=== PATIENT | male | born 1955 | race Caucasian/White ===

== ENCOUNTER 2021-02-04 08:31 | Day surgery (SDC) | payer OTHER ==
[2021-02-04] MEDS ORDERED: Ringers Lactate 1,000 ML IV ONE (08:48)
[2021-02-04] MEDS ORDERED: propofoL 200 MG/20 ML VIAL IV ONE ×2 (09:53→10:28)
[2021-02-04] MEDS ORDERED: LIDOCAINE 1% MPF 5 ML VIAL ONE (09:53)
[2021-02-04] MEDS ORDERED: NA CIT/CITRIC AC 30 ML ORAL UDC ONE (10:14)
--- NOTE | 2021-02-04 10:48 | ENDO RPT ---
[address], [address] EGD PROCEDURE REPORT EXAM DATE: 02/04/2021 PATIENT NAME: Tavo Mayo MR#: [id number] BIRTHDATE: 1955 ATTENDING: Barry Wright DR STATUS: outpatient [employer] SUPERVISOR: Ana Ramirez RN and Debbie Multani RN INDICATIONS: The patient is a 65 yr old Male here for an EGD due to GERD and dyspepsia PROCEDURE PERFORMED: EGD with biopsy for H. pylori MEDICATIONS: Per Anesthesia. TOPICAL ANESTHETIC: none CONSENT: The patient understands the risks and benefits of the procedure and understands that these risks include, but are not limited to: sedation, allergic reaction, infection, perforation and/or bleeding. Alternative means of evaluation and treatment include, among others: physical exam, x-rays, and/or surgical intervention. The patient elects to proceed with this endoscopic procedure. DESCRIPTION OF PROCEDURE: During intra-op preparation period all mechanical medical equipment was checked for proper function. Hand hygiene and appropriate measures for infection prevention was taken. Procedure, possible complications, and alternatives including but not limited to the possibility of bleeding, perforation, tear, infection, sepsis, need for surgery, need for blood transfusion, and anesthesia related complications were explained to the patient. After the risks, benefits and alternatives of the procedure were thoroughly explained, Informed consent was verified, confirmed and timeout was successfully executed by the treatment team. The patient was placed in the left lateral position. The patient was anesthetized with topical anesthesia. Through the anesthetized oropharyngeal area, the scope was passed without any difficulty. The EG-[id number] ([id number]) endoscope was introduced through the mouth and advanced to the third portion of the duodenum. Retroflexed views revealed a small hiatal hernia. The gastroscope was then slowly withdrawn and removed. Moderate gastritis was found in the body and the antrum of the stomach. Multiple biopsies were obtained and sent to pathology. A biopsy for H. pylori was taken. Bile reflux was found in the gastroesophageal junction. A biopsy for H. pylori was taken. A biopsy of the GEJ was obtained to rule out Oconnor's. Multiple erosions were found in the body and the antrum of the stomach. Located 44 cm from the point of entry. A biopsy of the GEJ was obtained to rule out Oconnor's. A biopsy for H. pylori was taken. ADVERSE EVENTS: There were no complications. IMPRESSIONS: 1. Moderate gastritis was found in the body and the antrum of the stomach 2. Bile reflux was found in the gastroesophageal junction 3. Multiple erosions were found in the body and the antrum of the stomach RECOMMENDATIONS: 1. anti-reflux regimen 2. acid suppression therapy 3. await biopsy results 4. follow-up: office 2 week(s) 5. avoid NSAIDS 6. follow-up of helicobacter pylori status, treat if indicated REPEAT EXAM: Barry Wright DR eSigned: Barry Wright DR 02/04/2021 10:48 AM cc: CPT CODES: ICD9 CODES: PATIENT NAME: Tavo Mayo MR#: [id number]
[2021-02-04 12:11] VITALS: O2SAT 98
[2021-02-04 12:12] VITALS: TEMP 98.4
[2021-02-04 12:14] VITALS: BP 138/58
[2021-02-04] MEDS ORDERED: HEPARIN 500 UNIT/5 ML SYR IV ONE (13:50)
== END 2021-02-04 11:45 | disposition home or self-care (01) ==
LOC: OR 08:31
PROVIDERS: ATTEND Surgery
PROC: 0DB78ZX Excision of Stomach, Pylorus, Via Natural or Artificial Opening Endoscopic, Diagnostic (ICD-10-PCS; 2021-02-04)
PROC: 0DB68ZX Excision of Stomach, Via Natural or Artificial Opening Endoscopic, Diagnostic (ICD-10-PCS; 2021-02-04)
PROC: 0DB48ZX Excision of Esophagogastric Junction, Via Natural or Artificial Opening Endoscopic, Diagnostic (ICD-10-PCS; 2021-02-04)
PROC: 0DB98ZX Excision of Duodenum, Via Natural or Artificial Opening Endoscopic, Diagnostic (ICD-10-PCS; principal; 2021-02-04 10:00)
DX: K21.9 Gastro-esophageal reflux disease without esophagitis (principal); R10.13 Epigastric pain; K29.50 Unspecified chronic gastritis without bleeding; Z20.822 Contact with and (suspected) exposure to COVID-19
CPT/HCPCS: 88312; 88305; 43239; U0003; J2704 ×2; J1642; J7120

== ENCOUNTER 2024-04-20 06:25 | Day surgery (SDC) | payer OTHER ==
[2024-04-20] MEDS: Meropenem 1,000 MG in NA CHLORIDE 0.9% 100 ML IV ONE (06:40)
[2024-04-20 06:48] VITALS: BP 144/77; TEMP 97.8; O2SAT 97; BMI 29.5
== END 2024-04-20 07:18 | disposition home or self-care (01) ==
LOC: DS 06:25
PROVIDERS: ATTEND Urology
DX: N39.0 Urinary tract infection, site not specified (principal); R97.20 Elevated prostate specific antigen [PSA]
CPT/HCPCS: 96365; J2185